=== PATIENT | male | born 1995 ===

== ENCOUNTER 2016-07-10 11:56 | Emergency (ER) | payer OTHER ==
[~2016-07-10] VITALS: Ht 167.6 cm; Wt 71.4 kg
[2016-07-10 12:03] VITALS: BP 119/72; PULSE 87; TEMP 98.1
[2016-07-10] MEDS ORDERED: INDERAL40 MG PO (12:06)
[2016-07-10] MEDS ORDERED: TOPAMAX 25MG25 M1 PO (12:07)
[2016-07-10] MEDS ORDERED: PAMELOR50 MG PO (12:07)
[2016-07-10] MEDS ORDERED: MELATONIN3 M1 (12:07)
== END 2016-07-10 16:50 | disposition home or self-care (01) ==
LOC: COL.ER 11:56
DX: R51 Headache (principal); R11.2 Nausea with vomiting, unspecified; Z87.820 Personal history of traumatic brain injury
CPT/HCPCS: J1170; J1200; J1885; J2765; J7030

== ENCOUNTER → 2016-08-23 | Outpatient (CLI) | payer OTHER ==
[~2016-08-23] MED LIST: INDERAL40 MG PO; MELATONIN3 M1; PAMELOR50 MG PO; TOPAMAX 25MG25 M1 PO
== END ==
LOC: COL.RAD 07:30
DX: M25.572 Pain in left ankle and joints of left foot (principal); M25.372 Other instability, left ankle

== ENCOUNTER 2017-12-18 11:51 | Emergency (ER) | payer OTHER ==
[~2017-12-18] VITALS: Ht 177.8 cm; Wt 65.9 kg
[2017-12-18 11:53] VITALS: BP 148/88; TEMP 98.6
[2017-12-18] MEDS ORDERED: MOBIC15 MG PO (12:09)
[2017-12-18] MEDS ORDERED: NORCO 325 MG-51 TAB PO (13:21)
[2017-12-18 13:56] VITALS: PULSE 88
== END 2017-12-18 13:56 | disposition home or self-care (01) ==
LOC: COL.ER 11:51
DX: S00.93XA Contusion of unspecified part of head, initial encounter (principal); S93.402A Sprain of unspecified ligament of left ankle, initial encounter; W01.198A Fall on same level from slipping, tripping and stumbling with subsequent striking against other object, initial encounter; Y92.238 Other place in hospital as the place of occurrence of the external cause

== ENCOUNTER 2017-12-30 10:22 | Emergency (ER) | payer OTHER ==
[~2017-12-30] VITALS: Ht 177.8 cm; Wt 63.6 kg
[~2017-12-30 10:22] MED LIST changes: +MOBIC15 MG PO; +NORCO 325 MG-51 TAB PO
[2017-12-30 10:23] VITALS: TEMP 97
[2017-12-30 13:34] VITALS: BP 141/96; PULSE 69
== END 2017-12-30 13:37 | disposition home or self-care (01) ==
LOC: COL.ER 10:22
DX: S06.0X9A Concussion with loss of consciousness of unspecified duration, initial encounter (principal); S93.402A Sprain of unspecified ligament of left ankle, initial encounter; S16.1XXA Strain of muscle, fascia and tendon at neck level, initial encounter; Z98.890 Other specified postprocedural states; W01.0XXA Fall on same level from slipping, tripping and stumbling without subsequent striking against object, initial encounter; Y92.219 Unspecified school as the place of occurrence of the external cause
CPT/HCPCS: J1885; L1846

== ENCOUNTER → 2018-01-01 | Outpatient (CLI) | payer OTHER | LOC: MHCPAIN 08:11 | DX: G89.29 Other chronic pain (principal); M79.2 Neuralgia and neuritis, unspecified; M25.572 Pain in left ankle and joints of left foot | CPT/HCPCS: G0463 ==

== ENCOUNTER 2018-05-23 06:55 | Emergency (ER) | payer OTHER ==
[~2018-05-23] VITALS: Ht 172.7 cm; Wt 68.2 kg
[2018-05-23 06:58] VITALS: TEMP 98.8
[2018-05-23 10:28] VITALS: BP 117/74; PULSE 89
== END 2018-05-23 10:28 | disposition home or self-care (01) ==
LOC: COL.ER 06:55
DX: S06.0X9A Concussion with loss of consciousness of unspecified duration, initial encounter (principal); W10.9XXA Fall (on) (from) unspecified stairs and steps, initial encounter

== ENCOUNTER → 2018-06-18 | Outpatient (CLI) | payer OTHER | LOC: COL.RAD 06-14 13:00 | DX: F07.81 Postconcussional syndrome (principal) ==

== ENCOUNTER 2018-06-21 12:13 | Emergency (ER) | payer OTHER ==
[~2018-06-21] VITALS: Ht 170.2 cm; Wt 68.2 kg
[2018-06-21 12:22] VITALS: TEMP 98.5
[2018-06-21 14:46] VITALS: BP 120/80; PULSE 87
== END 2018-06-21 14:46 | disposition home or self-care (01) ==
LOC: COL.ER 12:13
DX: R51 Headache (principal); F07.81 Postconcussional syndrome
CPT/HCPCS: J1200; J1885; J2765; J7030

== ENCOUNTER 2018-06-27 10:46 | Emergency (ER) | payer OTHER ==
[~2018-06-27] VITALS: Ht 170.2 cm; Wt 68.2 kg
[2018-06-27 10:59] VITALS: BP 121/59; TEMP 97.2
[2018-06-27 13:20] VITALS: PULSE 73
== END 2018-06-27 13:22 | disposition home or self-care (01) ==
LOC: COL.ER 10:46
DX: R51 Headache (principal)
CPT/HCPCS: J1200; J1885; J2270; J2765; J7030

== ENCOUNTER → 2018-07-17 | Outpatient (CLI) | payer OTHER | LOC: COL.RAD 07-08 07:30 | DX: S09.90XA Unspecified injury of head, initial encounter (principal); W10.9XXA Fall (on) (from) unspecified stairs and steps, initial encounter | CPT/HCPCS: A9585 ==